=== PATIENT | male | born 1960 | race Caucasian/White ===

== ENCOUNTER 2017-03-18 11:15 | Day surgery (SDC) | payer BC ==
[2017-03-14 14:34] LABS: HEMATOCRIT 36.9 % (40.0-51.0); HEMOGLOBIN 12.9 g/dL (13.6-17.8)
[2017-03-14 14:46] LABS: BUN (BLOOD UREA NITROGEN) 17 MG/DL (6-23); CALCIUM, SERUM 9.4 MG/DL (8.5-10.4); CHLORIDE, SERUM 104 MMOL/L (96-112); CO2 (CARBON DIOXIDE) 33 MMOL/L (24-34); CREATININE 0.94 MG/DL (0.70-1.30); GFR AFRICAN AMERICAN 103 ML/MIN (>=60); GFR NON AFRICAN AMERICAN 89 ML/MIN (>=60); GLUCOSE, SERUM 99 MG/DL (60-99); POTASSIUM, SERUM 3.9 MMOL/L (3.5-5.3); SODIUM, SERUM 141 MMOL/L (135-148)
[~2017-03-18 11:15] MED LIST: ASAB PO; CIALIS5 MG PO; HYZAAR1 TAB PO; NEXIUM20 M1 PO; PRAVAC PO; VISKEN10 PO
== END 2017-03-18 23:59 | disposition home or self-care (01) ==
LOC: IMGHOLD 11:15
PROVIDERS: Registered Nurse
PROC: BR30ZZZ Magnetic Resonance Imaging (MRI) of Cervical Spine (ICD-10-PCS; principal; 2017-03-18)
DX: M54.2 Cervicalgia (principal); I10 Essential (primary) hypertension; M79.602 Pain in left arm; M43.12 Spondylolisthesis, cervical region; M47.892 Other spondylosis, cervical region; M50.33 Other cervical disc degeneration, cervicothoracic region; M50.323 Other cervical disc degeneration at C6-C7 level; M50.322 Other cervical disc degeneration at C5-C6 level
CPT/HCPCS: 72141; 80048; 85014; 85018; 93005